=== PATIENT | female | born 1950 | race Caucasian/White ===

== ENCOUNTER 2020-10-15 09:14 | Observation (INO) ==
--- NOTE | 2020-09-20 15:46 | PAT Medication Instructions ---
Medication Instructions Date of Service September 20, 2020 Home Medications acetaminophen [Acetaminophen Extra Strength] 500 - 1,000 mg PO Q6H PRN cholecalciferol (vitamin D3) [Vitamin D3] 150 mcg PO QAM famotidine [Pepcid] 20 mg PO DAILY PRN hydrochlorothiazide 25 mg PO QAM levothyroxine 25 mcg PO QAM DO NOT take the morning of surgery cholecalciferol (vitamin D3) [Vitamin D3] 150 mcg PO QAM hydrochlorothiazide 25 mg PO QAM Take morning of surgery With a small sip of water, OTHERWISE NOTHING TO EAT OR DRINK AFTER MIDNIGHT: acetaminophen [Acetaminophen Extra Strength] 500 - 1,000 mg PO Q6H PRN (okay to take up to 4 hours prior to surgery if needed) famotidine [Pepcid] 20 mg PO DAILY PRN (if needed) levothyroxine 25 mcg PO QAM Take evening before surgery acetaminophen [Acetaminophen Extra Strength] 500 - 1,000 mg PO Q6H PRN (if needed) famotidine [Pepcid] 20 mg PO DAILY PRN (if needed) Other Notes If you have any questions please call us at [phone] or [phone] or [phone] or [phone]
--- NOTE | 2020-09-26 12:58 | Anesthesiology Consultation ---
Date of Service September 26, 2020 Assessment & Plan (1) Encounter for pre-operative examination: COVID Status: As of 09/26 assessment, patient denies travel to endemic area, known exposure/sick contacts, or symptoms of COVID19. Patient instructed that they and their household members must follow strict social distancing guidelines, wear a mask in public and avoid travel/events/gatherings for 14 days prior to surgery. Preoperative COVID19 testing to be completed prior to surgery per surgeon's arrangements (10/10 per pt). Patient made aware to self-isolate as much as possible between COVID testing and surgery. Pt is fully vaccinated for COVID-19. Chart Review Chart Review: Acceptable Risk for Surgery (pending surgeon-ordered PCP clearance) and Patient seen in Pre Admission Testing Teaching & Discussion Instructed NPO after midnight before surgery, except medications with 15 cc of water. Medication instructions provided according to the PAT guidelines. History Surgery Operation Date: 10/15/20 08:40 Proposed Procedures p Left Hip Total Anterior Hip Arthroplasty(Left) - Dario Benton DO Height/Weight Height: 5 ft 6 in Weight: 76.4 kg Allergies Allergy/AdvReac Type Severity Reaction Status Date / Time ciprofloxacin [From Cipro] Allergy Intermediate SWELLING Verified 09/12/20 15:41 IN EYES/RED Medications Home Medications Medication Instructions Recorded Confirmed Last Taken acetaminophen [Acetaminophen Extra 500 - 1,000 mg PO Q6H PRN 09/12/20 09/12/20 Unknown Strength] cholecalciferol (vitamin D3) 150 mcg PO QAM 09/12/20 09/12/20 Unknown [Vitamin D3] famotidine [Pepcid] 20 mg PO DAILY PRN 09/12/20 09/12/20 Unknown hydrochlorothiazide 25 mg PO QAM 09/12/20 09/12/20 Unknown levothyroxine 25 mcg PO QAM 09/12/20 09/12/20 Unknown Past Medical History Medical History (Updated 09/27/20 @ 08:52 by Edgar Bishop) GERD (gastroesophageal reflux disease) Hypertension Hypothyroidism Jaw clicking Has been an issue ever since jaw was hyperextended for intubation during a surgery. Exacerbated 09/19/20 when eating hamburger, could not open jaw. Seen by PCP, tx with prednisone taper, back to baseline. Advise caution when intubating. Osteoarthritis Exercise / Class Metabolic Activity II 4-5 Yardwork/Stairs/Walk up hill Past Family History Family History Brother Family history of diabetes mellitus Other No family history of adverse response to anesthesia Past Surgical History Surgical History H/O unilateral oophorectomy RT AND LEFT (2 SURGERIES) History of section X 2 History of colonoscopy History of hysterectomy History of repair of rotator cuff RT Salivary gland swelling REMOVED FROM LEFT SIDE [place] teeth removed Past Anesthesia History No Hx of Anesthesia Complications and No Family Hx of Anesthesia Complications (other than mother PONV) History of PONV History of PONV (single episode with hysterectomy) and Hx of Motion Sickness Social History Smoking Status: Former smoker tobacco type: cigarettes Do You Dip or Chew Tobacco: No Smoking End Date: 35 YEARS AGO Hx Alcohol Use: No substance use type: does not use Review of Systems Pt denies any recent chest pain, shortness of breath, palpitations, cough, fever, URI, or uncontrolled acid reflux. Physical Exam Vital Signs BP: 136/84 P: 62bpm SPO2: 97% RA T: 98.4 F R: 16 ENMT Mouth: + dental restorations (many crowns) and + macroglossia; no chipped teeth and no loose teeth Thyromental Distance: > or= 3.5 Finger Breadths Mallampati Class: III Neck normal visual inspection; neck extension not limited Respiratory normal respiratory effort, lungs clear to auscultation Cardiovascular RRR, no murmur, no edema Testing Laboratory Results 09/26/20 13:12 09/26/20 13:10 PT 9.4 Seconds (9.0-12.0) 09/26/20 13:12 INR 0.9 (0.9-1.1) 09/26/20 13:12 APTT 24.7 Seconds (21.0-31.0) 09/26/20 13:12 Hemoglobin A1c 5.5 % (4.5-5.6) 09/26/20 13:12 Urine Color Yellow 09/26/20 13:12 Urine Appearance Clear (Clear) 09/26/20 13:12 Urine pH 5.0 (4.5-7.5) 09/26/20 13:12 Ur Specific Calcium 1.008 (1.000-1.030) 09/26/20 13:12 Urine Protein Negative (Negative) 09/26/20 13:12 Urine Glucose (UA) Negative (Negative) 09/26/20 13:12 Urine Ketones Negative (Negative) 09/26/20 13:12 Urine Nitrite Negative (Negative) 09/26/20 13:12 Ur Leukocyte Esterase Trace (Negative) H 09/26/20 13:12 Urine WBC (Auto) 1-5 /hpf (0-5) 09/26/20 13:12 Urine RBC (Auto) 0-4 /hpf (0-4) 09/26/20 13:12 U Hyaline Cast (Auto) 0 /lpf (0-5) 09/26/20 13:12 U Epithel Cells (Auto) >30 /lpf (0-5) H 09/26/20 13:12 Urine Bacteria (Auto) Negative (Negative) 09/26/20 13:12 Blood Type O Positive 09/26/20 13:12 Antibody Screen NEGATIVE 09/26/20 13:12 Electrocardiogram Date: 09/26/20 Findings: + SB @ (54bpm) With short CA. Chest X-Ray Date: 09/26/20 FINDINGS: The cardiac and mediastinal contours are normal. There is no evidence of focal pulmonary consolidation. There is no evidence of failure. No pleural effusions are visualized.[There is probable upper lobe emphysema. IMPRESSION: No active disease in the chest.
--- NOTE | 2020-09-26 13:33 | XRay Report ---
XR chest Pre-admission PA/Lat CLINICAL HISTORY: Preoperative chest COMPARISON STUDY: No previous studies for comparison. FINDINGS: The cardiac and mediastinal contours are normal. There is no evidence of focal pulmonary co nsolidation. There is no evidence of failure. No pleural effusions are visualized.[There is probable upper lobe emphysema. IMPRESSION: No active disease in the chest. ACT 112: Negative or not required by law. Electronically signed by: Slim Fraser M.D. 09/26/2020 1:32 PM
[2020-09-26 14:15] LABS: Basophils # (auto) 0.01 K/uL (0-0.2); Basophils % (auto) 0.1 %; Eosinophils # (auto) 0.03 K/uL (0-0.5); Eosinophils % (auto) 0.3 %; Hematocrit (blood only) 43.9 % (37-47); Hemoglobin 14.7 g/dL (12.0-16.0); Immature Granulocytes # (auto) 0.04 K/uL (0.00-0.02); Immature Granulocytes % (auto) 0.5 %; Lymphocytes # (auto) 1.15 K/uL (1.2-3.4); Lymphocytes % (auto) 13.3 %; Mean Corpuscular Hemoglobin 29.8 pg (25-34); Mean Corpuscular Hgb Conc 33.5 g/dL (32-36); Mean Corpuscular Volume 88.9 fL (80-100); Mean Platelet Volume 10.1 fL (7.4-10.4); Monocytes % (auto) 4.6 %; Neutrophils % (auto) 81.2 %; Platelet Count 299 K/uL (130-400); RDW Coefficient of Variation 14.3 % (11.5-14.5); RDW Standard Deviation 46.8 fL (36.4-46.3); Red Blood Count 4.94 M/uL (4.2-5.4); White Blood Count 8.63 K/uL (4.8-10.8)
[2020-09-26 14:25] LABS: Estimated Average Glucose 111 mg/dl; Hemoglobin A1C 5.5 % (4.5-5.6)
[2020-09-26 14:56] LABS: INR 0.9 (0.9-1.1); Partial Thromboplastin Ratio 0.9; Partial Thromboplastin Time 24.7 Seconds (21.0-31.0); Prothrombin Time 9.4 Seconds (9.0-12.0)
[2020-09-26 15:12] LABS: Appearance Urine Clear (Clear); Bacteria Urine Automated Negative (Negative); Bilirubin Urine Negative (Negative); Blood Urine Negative (Negative); Cast Urine Automated 0 /lpf (0-5); Color Urine Yellow; Epithelial Cell Urine Auto >30 /lpf (0-5); Glucose Urine UA Negative (Negative); Ketones Urine Negative (Negative); Leukocyte Esterase Urine Trace (Negative); Nitrite Urine Negative (Negative); Protein Urine Negative (Negative); RBC Urine Automated 0-4 /hpf (0-4); Specific Gravity Urine 1.008 (1.000-1.030); Urobilinogen Urine Negative (Negative)
[2020-09-26 16:13] LABS: Albumin Level 3.7 gm/dl (3.4-5.0); BUN Creatinine Ratio 20.4 (10-20); Calcium 9.9 mg/dl (8.5-10.1); Creatinine Clr Calc Pharmacy 52.8 ml/min; Est GFR (African American) 61.5; Est GFR (Non-African American) 53.1; Potassium 4.8 mmol/L (3.5-5.1)
--- NOTE | 2020-09-26 16:45 | Electrocardiogram Report ---
Test Reason : Blood Pressure : / mmHG Vent. Rate : 054 BPM Atrial Rate : 054 BPM P-R Int : 108 ms QRS Dur : 090 ms QT Int : 416 ms P-R-T Axes : 069 081 077 degrees QTc Int : 394 ms Sinus bradycardia with short RI Otherwise normal ECG No previous ECGs available Confirmed by Angel Cannon ([id number]) on 09/26/2020 4:44:31 PM Referred By: Dario Benton Confirmed By:Angel Cannon
--- NOTE | 2020-10-14 09:33 | History & Physical Report ---
Date of Service October 15, 2020 Assessment & Plan (1) Degenerative joint disease of left hip: I have indicated the patient for left anterior total hip replacement. The risks, benefits and complications of surgery were explained to the patient which include but not limited to infection, acute blood loss, DVT/PE, injury to nerves, vessels, bone, soft tissue, arthrofibrosis, chronic pain, failure of the prosthesis, hip dislocation, leg length discrepancy, need for additional surgery, cardiac and pulmonary events and . The patient wished to proceed with surgery and informed consent was obtained at this time. We will plan for 81mg ASA BID post-operatively for DVT prophylaxis. Upon discharge the patient will be discharged home with home health services. Appropriate clearances by Gillian CHOW were obtained. The patient is asymptomatic for UTI. History of Present Illness Chief Complaint: Left hip pain/DJD Primary Care Provider: Arlette Granados The patient is a 69 year old female who presents with complaints of severe left hip pain and DJD. The patient has failed outpatient conservative treatments to this point which included NSAIDs, IA corticosteroid injection, home exercise/walking program. The patient's pain and limited function have progressed to the point where they severely hinder their activities of daily living and they no longer tolerate exercise programs. They are requesting to proceed with total hip replacement surgery. Allergies Allergy/AdvReac Type Severity Reaction Status Date / Time ciprofloxacin [From Cipro] Allergy Intermediate SWELLING Verified 10/15/20 09:34 IN EYES/RED erythromycin base AdvReac Intermediate Gastrointestinal Verified 10/15/20 09:35 Upset Home Medications Medication Instructions Recorded Confirmed Type acetaminophen [Acetaminophen Extra 500 - 1,000 mg PO Q6H PRN 09/12/20 10/15/20 History Strength] cholecalciferol (vitamin D3) 150 mcg PO QAM 09/12/20 10/15/20 History [Vitamin D3] famotidine [Pepcid] 20 mg PO DAILY PRN 09/12/20 10/15/20 History hydrochlorothiazide 25 mg PO QAM 09/12/20 10/15/20 History levothyroxine 25 mcg PO QAM 09/12/20 10/15/20 History Past Med/Surg History Medical History GERD (gastroesophageal reflux disease) Hypertension Hypothyroidism Jaw clicking Has been an issue ever since jaw was hyperextended for intubation during a surgery. Exacerbated 09/19/20 when eating hamburger, could not open jaw. Seen by PCP, tx with prednisone taper, back to baseline. Advise caution when intubating. Osteoarthritis Surgical History H/O unilateral oophorectomy RT AND LEFT (2 SURGERIES) History of section X 2 History of colonoscopy History of hysterectomy History of repair of rotator cuff RT Salivary gland swelling REMOVED FROM LEFT SIDE [place] teeth removed Family History Brother Family history of diabetes mellitus Other No family history of adverse response to anesthesia Social History Smoking Status: Former smoker Smoking End Date: 35 YEARS AGO; Second Hand Exposure: No; Do You Dip or Chew Tobacco: No; Tobacco Cessation Education Requested by Patient: No Hx Alcohol Use: No Preferred Language: [place] [employer] [place] Required: No Beliefs That Will Affect Care: None Current Living Situation: Spouse Feels Safe at Home: Yes Safety Concerns: Feels Safe At This Time Assistive Devices: Glasses Assistive Devices Comment: READING GLASSES Review of Systems Review of Systems: All systems reviewed & are unremarkable except as noted in HPI & below Constitutional: as per Subjective / HPI Physical Exam Physical Exam: LLE NVSI +EHL/FHL/TA/GS SILT grossly, +2 DP pulse, compartments soft NT, limited painful ROM of the hip, antalgic gait. Constitutional: WD/WN, vitals as above Eyes: PERRL, conjunctivae normal, anicteric sclerae ENMT: external ear and nose normal, oropharynx normal Neck: trachea midline, no thyromegaly Respiratory: normal respiratory effort, lungs clear to auscultation Cardiovascular: RRR, no murmur, no edema Gastrointestinal (Abdomen): normal bowel sounds, soft, nontender, no hepatosplenomegaly Musculoskeletal: no cyanosis or clubbing, extremities motor strength 5/5 Skin: no rashes, warm and dry Neurologic: patellar DTR's 2+ bilat, sensation intact Psychiatric: A+Ox3, euthymic affect Lymphatic: no cervical or axillary lymphadenopathy Results & Data Results & Data ([facility]) Diagnostic Findings Multiple views of the hip demonstrates severe DJD with complete loss of the joint space. +osteophytes, +sclerosis, +subchondral cysts. Pre Admission Testing Addendum Laboratory Results 09/26/20 13:12 09/26/20 13:10 PT 9.4 Seconds (9.0-12.0) 09/26/20 13:12 INR 0.9 (0.9-1.1) 09/26/20 13:12 APTT 24.7 Seconds (21.0-31.0) 09/26/20 13:12 Hemoglobin A1c 5.5 % (4.5-5.6) 09/26/20 13:12 Urine Color Yellow 09/26/20 13:12 Urine Appearance Clear (Clear) 09/26/20 13:12 Urine pH 5.0 (4.5-7.5) 09/26/20 13:12 Ur Specific [place] 1.008 (1.000-1.030) 09/26/20 13:12 Urine Protein Negative (Negative) 09/26/20 13:12 Urine Glucose (UA) Negative (Negative) 09/26/20 13:12 Urine Ketones Negative (Negative) 09/26/20 13:12 Urine Nitrite Negative (Negative) 09/26/20 13:12 Ur Leukocyte Esterase Trace (Negative) H 09/26/20 13:12 Urine WBC (Auto) 1-5 /hpf (0-5) 09/26/20 13:12 Urine RBC (Auto) 0-4 /hpf (0-4) 09/26/20 13:12 U Hyaline Cast (Auto) 0 /lpf (0-5) 09/26/20 13:12 U Epithel Cells (Auto) >30 /lpf (0-5) H 09/26/20 13:12 Urine Bacteria (Auto) Negative (Negative) 09/26/20 13:12 Blood Type O Positive 09/26/20 13:12 Antibody Screen NEGATIVE 09/26/20 13:12 09/26/20 08:32 Urine Culture - Final Urine,Clean Catch More than three types of organisms present, all low counts mixed probable skin lenora. No further identifications or sensitivities to follow.
[~2020-10-15 09:14] MED LIST: ACETAMINOPHEN 500 MG TAB PO SCH; BUPIVACAINE 0.5 % 5 MG/1 ML PF 10ML VIAL ONE; CeleBREX 200 MG CAP PO SCH; FAMOTIDINE 20 MG TAB PO SCH; LR 500ML BOLUS, THEN 15ML/HR IV SCH; METOCLOPRAMIDE HCL 10 MG TABLET PO SCH; ROPIVACAINE 0.5% HCL/PF 150 MG, BUPIVACAINE 0.75% MPF 20 ML, EPINEPHrine 30MG/30ML (OR ... INFIL SCH; TRANEXAMIC ACID 1,000 MG **IV Intra-op IV SCH; TRANEXAMIC ACID 1,000 MG **IV Pre-op IV SCH; ceFAZolin 1000MG 1,000 MG/7.5 ML SYR IV SCH; dexAMETHasone 4 MG TAB PO SCH; fentaNYL citrate 100 MCG/2 ML VIAL ONE
[2020-10-15] MEDS ORDERED: MIDAZOLAM HCL 1 MG/ML 2ML VIAL ONE ×2 (10:13→13:04)
[2020-10-15] MEDS ORDERED: PROPOFOL IV EMULSION 10 MG/ML 20 ML VIAL IV ONE ×3 (11:27→13:42)
[2020-10-15] MEDS ORDERED: ORTHO JOINT ANESTHETIC ONE (12:03)
--- NOTE | 2020-10-15 12:27 | History & Physical Bridge Note ---
Date of Service October 15, 2020 History & Physical Bridge Note I have examined the patient, reviewed the History & Physical and in the interval since the performance of the History & Physical I have noted the following changes of clinical significance: no changes noted
[2020-10-15] MEDS ORDERED: ATROPINE SULFATE 0.1 MG/ML 10ML SYR IV PRN (13:35)
[2020-10-15] MEDS ORDERED: ePHEDrine sulfate 50 MG/ML AMP IV PRN (13:35)
[2020-10-15] MEDS ORDERED: PHENYLEPHRINE HCL 10 MG/ML VIAL ONE (13:59)
--- NOTE | 2020-10-15 14:16 | Post Operative Brief Note ---
Immediate Post Op Note v1 Date of Surgery October 15, 2020 Pre & Post Diagnosis Operation Date: 10/15/20 11:50 Pre-Op Diagnosis: Unilateral Primary Osteoarthritis, Left Hip Post-Op Diagnosis: Unilateral Primary Osteoarthritis, Left Hip I identified the patient and participated in the time-out.: Yes Procedure Operation Date: 10/15/20 11:50 Actual Procedures p Left Hip Total Anterior Hip Arthroplasty(Left) - Dario Benton DO Surgeon Dario Benton DO Forklift Wheel Loader Moris Fields Estimated Blood Loss 175 Findings Consistent with Post-Op Diagnosis Fluids See anesthesia report Specimens Femoral head Anesthesia Type Spinal MAC Complications none Disposition Disposition: Recovery Room Overlapping Procedure I was present for: the critical portions of procedure. I was immediately available: during the entire case. Back up surgeon: was not required during procedure.
--- NOTE | 2020-10-15 14:18 | Operative Report ---
Post Operative Report Pre & Post Diagnosis Operation Date: 10/15/20 11:50 Pre-Op Diagnosis: Unilateral Primary Osteoarthritis, Left Hip Post-Op Diagnosis: Unilateral Primary Osteoarthritis, Left Hip I identified the patient and participated in the time-out.: Yes Procedure Operation Date: 10/15/20 11:50 Actual Procedures p Left Hip Total Anterior Hip Arthroplasty(Left) - Dario Benton DO Surgeon Dario Benton DO Logistics Operations Manager Moris Fields Estimated Blood Loss 175 Findings Consistent with Post-Op Diagnosis Fluids See anesthesia report Specimens Femoral head Anesthesia Type Spinal MAC Complications none Disposition Disposition: Recovery Room Indications The patient is a 62-year-old female who presents with severe progressive low hip DJD who has failed outpatient conservative treatments. I indicated the patient for a total hip replacement and the risks and benefits were explained in detail which included but not limited to infection, bleeding, blood clot, damage to surrounding bone, nerves, vessels, soft tissue, hip dislocation, failure of the prosthesis, leg length discrepancy, need for additional surgery and . The patient agreed to proceed with replacement of the hip and informed consent was obtained. Appropriate clearances were obtained. Description of Procedure COMPONENTS USED: [employer] hip system: Acetabulum size 52, femur size 7 high offset, femoral head 36-3, liner 52x30, acetabular screw 25 mm x 1. DESCRIPTION OF PROCEDURE: Following satisfactory spinal anesthesia, the patient was placed supine on the OR table. The right leg was placed in the well leg grewal and the left leg in the traction device. The left leg was prepared with ChloraPrep and draped sterilely. A surgical timeout was performed, patient identified and site lux verified. Appropriate antibiotics were given. A standard anterior approach in the interval between the sartorius and tensor muscles was performed. Dissection was carried down through subcutaneous tissues. Electrocautery was utilized for hemostasis. Circumflex femoral vessels were identified, tied and ligated. The anterior capsular fat pad was removed and the capsulotomy was performed revealing the arthritic femoral neck and head. A femoral neck cut was made with reciprocating saw and the bone fragments removed. The acetabular self-retraining retractor was placed. Acetabular reaming was completed under fluoroscopic guidance, a 52 shell was impacted into an anatomic position and secured with a acetabular screw. Local anesthetic was placed and following irrigation, the polyethylene liner was placed. The femur was placed into position of external rotation, extension and adduction. Femoral canal was prepared up to the size 7 high offset. Trial reduction with a 36-3 neck length head showed good soft tissue tension, leg lengths restored, and good fit and fill of the proximal canal using fluoroscopic landmarks. The hip was dislocated. The trial component was removed. The final implant was placed. The hip was irrigated with sterile saline solution and reduced. A Betadine soak was performed. After 3 minutes, the hip was once more irrigated with copious sterile saline solution with bacitracin. Nancy-incisional soft tissue was injected utilizing [place] Orthomix which includes a combination of Ropivicaine 0.5% 150mg, Bupivicaine 0.5%/Epinephrine 1:200,000 30ml, Toradol 30mg, Dexamethasone 4mg, Ketamine 10mg, Clonidine 100mcg and NSS 30ml solution. The capsule was then closed with 1-0 Vicryl interrupted figure of eight sutures. The fascia was closed with a running suture of #1 Vicryl, the subcutaneous tissues with 2-0 Vicryl and the skin was closed with fernando and a sterile dry dressing was applied which included haseeb incisional VAC. The patient tolerated the procedure well and was transported to PACU in stable condition. Due to the complex nature of the procedure, the entire surgery was performed with the operational assistance of Moris Fields PA-C. The medical practice assistant, under direct supervision, was involved in the actual performance of all aspects of the surgical procedure including patient positioning, hemostasis, tissue retraction, instrument management and wound closure. I attest to the content of the Intraoperative Record and any orders documented therein. Any exceptions are noted below.
--- NOTE | 2020-10-15 15:03 | XRay Report ---
XR hip 1V LT w pelvis CLINICAL HISTORY: IN PACU - A/P PELVIS and LATERAL HIP COMPARISON: None. DISCUSSION: Prosthetic left hip joint is seen. Subcutaneous emphysema and skin fernando are demonstrated. IMPRESSION: Postoperative changes as detailed above. ACT 112: Negative or not required by law. The above report was generated using voice recognition software. It may contain grammatical, syntax o r spelling errors. Electronically signed by: Dalila Marroquin DO 10/15/2020 3:02 PM
--- NOTE | 2020-10-15 15:06 | Fluoroscopy Report ---
INTRAOPERATIVE RADIOGRAPHS CLINICAL HISTORY: Left hip arthroplasty. Fluoroscopy time: 50 seconds. FINDINGS: 2 spot fluoroscopic views of the left hip from an arthroplasty procedure are presented. A b ipolar left hip arthroplasty is in near-anatomic alignment. A single cortical lag screw transfixes th e acetabular cup. There is no evidence of fracture on these fluoroscopic images. Advanced arthritic c hange is noted in the right hip. IMPRESSION: Intraoperative images from a left hip arthroplasty procedure as above. Electronically signed by: Hao Adamson M.D. 10/15/2020 3:04 PM
--- NOTE | 2020-10-15 15:10 | Anesthesiology Progress Note ---
Date of Service October 15, 2020 Anesthesia Post Procedure Vital Signs Vital Signs: Temp Pulse Pulse Resp BP Pulse Ox 10/15/20 15:05 36.4 C L 64 14 117/68 97 10/15/20 14:55 64 14 102/70 97 10/15/20 14:45 67 14 110/62 100 10/15/20 14:38 36.5 C 77 12 99/72 L 99 10/15/20 09:42 36.7 C 74 74 16 131/76 100 Transfer of Care Handoff Completed per policy Notes Mental Status: alert / awake / arousable Patient Amnestic to Procedure: Yes Nausea / Vomiting: adequately controlled Pain: adequately controlled Airway Patency, RR, SpO2: stable & adequate BP & HR: stable & adequate Hydration State: stable & adequate Neuraxial Anesthesia: was administered and sensory block is resolving Anesthetic Complications: no major complications apparent
[2020-10-15] MEDS ORDERED: FAMOTIDINE 20 MG TAB PO PRN (15:32)
[2020-10-15] MEDS ORDERED: MAGNESIUM HYDROXIDE SUSP 30 ML UDC PO PRN (15:32)
[2020-10-15] MEDS ORDERED: ONDANSETRON INJ 2 MG/ML 2 ML VIAL IV PRN (15:32)
[2020-10-15] MEDS ORDERED: diphenhydrAMINE Capsule 25 MG CAP PO PRN (15:32)
[2020-10-15] MEDS ORDERED: oxyCODONE HCL IR 5 MG TAB (IMMEDIATE RELEASE) PO PRN (15:32)
[2020-10-15] MEDS ORDERED: METOCLOPRAMIDE HCL INJ 5 MG/ML 2 ML VIAL IV PRN (15:32)
[2020-10-15] MEDS ORDERED: bisacodyL 10 MG SUPP PR PRN (15:32)
[2020-10-15] MEDS ORDERED: HYDROmorphone INJ 0.5 MG/0.5 ML SYR IV PRN (15:32)
[2020-10-15] MEDS ORDERED: NALOXONE HCL 0.4 MG/1 ML VIAL/CARP IV PRN (15:32)
[2020-10-15] MEDS: KETOROLAC TROMETHAMINE 15 MG/ML VIAL IV SCH ×2 (16:14→21:49)
[2020-10-15] MEDS: SODIUM CHLORIDE 0.9% 1000ML 1,000 ML IV SCH (16:15)
--- NOTE | 2020-10-15 18:10 | Orthopedic Progress Note ---
Date of Service October 15, 2020 Assessment & Plan (1) Degenerative joint disease of left hip: Status post left anterior total hip arthroplasty -Ancef x24 -DVT prophylaxis: SCDs, teds, 81 mg ASA twice daily -Weight-bear as tolerates left lower extremity -PT/OT -Postoperative x-ray demonstrates well aligned well fixed prosthesis without fracture or dislocation -A.m. labs -DC planning Admission and Anticipated Discharge Date Admission Date: October 15, 2020 Subjective Post Operative Progress Note Patient seen sitting up in bed, comfortable, denies complaints, pain well controlled, no acute issues. Review of Systems Review of Systems: All systems reviewed & are unremarkable except as noted in HPI & below Constitutional: as per Subjective / HPI Physical Exam Physical Exam: LLE NVSI +EHL/FHL/TA/GS SILT grossly, +2 DP pulse, compartments soft NT, dressing cdi. Constitutional: WD/WN, vitals as above Results & Data ([facility]) Vital Signs (Past 12 Hours) Vital Signs Temp Pulse Pulse Pulse Resp BP Pulse Ox 10/15/20 17:20 79 16 117/77 98 10/15/20 16:15 36.4 C L 55 L 16 131/75 99 10/15/20 15:45 52 L 16 119/77 99 10/15/20 15:15 36.5 C 65 114/74 99 10/15/20 15:05 36.4 C L 64 14 117/68 97 10/15/20 14:55 64 14 102/70 97 10/15/20 14:45 67 14 110/62 100 10/15/20 14:38 36.5 C 77 12 99/72 L 99 10/15/20 09:42 36.7 C 74 74 16 131/76 100
[2020-10-15] MEDS ORDERED: SENNA 8.6 MG TAB PO SCH (21:00)
[2020-10-15] MEDS: ceFAZolin 2000MG 2,000 MG/15 ML SYR IV SCH (21:41)
[2020-10-15] MEDS: DOCUSATE SODIUM 100 MG CAP PO SCH (21:44)
[2020-10-15] MEDS: ACETAMINOPHEN 500 MG TAB PO SCH (21:44)
[2020-10-16] MEDS: SODIUM CHLORIDE 0.9% 1000ML 1,000 ML IV SCH (02:26)
[2020-10-16] MEDS: KETOROLAC TROMETHAMINE 15 MG/ML VIAL IV SCH ×2 (05:01→10:59)
[2020-10-16] MEDS: ceFAZolin 2000MG 2,000 MG/15 ML SYR IV SCH (05:01)
[2020-10-16] MEDS: ACETAMINOPHEN 500 MG TAB PO SCH ×2 (06:01→13:16)
[2020-10-16] MEDS ORDERED: LEVOTHYROXINE SODIUM 25 MCG TABLET PO SCH (06:30)
[2020-10-16 06:54] LABS: Hematocrit (blood only) 33.9 % (37-47); Hemoglobin 11.3 g/dL (12.0-16.0); Immature Granulocytes # (auto) 0.02 K/uL (0.00-0.02); Immature Granulocytes % (auto) 0.2 %; Lymphocytes # (auto) 0.64 K/uL (1.2-3.4); Lymphocytes % (auto) 5.5 %; Mean Corpuscular Hemoglobin 29.6 pg (25-34); Mean Corpuscular Hgb Conc 33.3 g/dL (32-36); Mean Corpuscular Volume 88.7 fL (80-100); Mean Platelet Volume 9.8 fL (7.4-10.4); Monocytes # (auto) 0.65 K/uL (0.11-0.59); Monocytes % (auto) 5.6 %; Neutrophils # (auto) 10.39 K/uL (1.4-6.5); Neutrophils % (auto) 88.7 %; Platelet Count 249 K/uL (130-400); RDW Coefficient of Variation 13.8 % (11.5-14.5); RDW Standard Deviation 44.8 fL (36.4-46.3); Red Blood Count 3.82 M/uL (4.2-5.4)
[2020-10-16 07:29] LABS: BUN Creatinine Ratio 19.5 (10-20); Calcium 8.7 mg/dl (8.5-10.1); Creatinine Clr Calc Pharmacy 52.3 ml/min; Est GFR (African American) 60.8 ml/min; Est GFR (Non-African American) 52.5 ml/min
[2020-10-16] MEDS: DOCUSATE SODIUM 100 MG CAP PO SCH (08:41)
[2020-10-16] MEDS ORDERED: hydroCHLOROthiazide 25 MG TAB PO SCH (09:00)
[2020-10-16] MEDS ORDERED: ASPIRIN 81 MG ECTAB PO SCH (09:00)
[2020-10-16] MEDS ORDERED: MULTIVITAMIN TAB PO SCH (09:00)
--- NOTE | 2020-10-16 10:20 | Orthopedic Progress Note ---
Date of Service October 16, 2020 Assessment & Plan (1) Degenerative joint disease of left hip: Status post left anterior total hip arthroplasty POD#1 -Ancef x24 -DVT prophylaxis: SCDs, teds, 81 mg ASA twice daily -Weight-bear as tolerates left lower extremity -PT/OT -Postoperative x-ray demonstrates well aligned well fixed prosthesis without fracture or dislocation -A.m. labs - as above, hgb 11.3 -DC planning - Home with Admission and Anticipated Discharge Date Admission Date: October 15, 2020 Subjective Post Operative Progress Note Patient seen ambulating in room, comfortable, denies complaints, pain well controlled, no acute issues. Denies F/C/N/V/SOB/CP. Review of Systems Review of Systems: All systems reviewed & are unremarkable except as noted in HPI & below Constitutional: as per Subjective / HPI Physical Exam Physical Exam: LLE NVSI +EHL/FHL/TA/GS SILT grossly, +2 DP pulse, compartments soft NT, dressing cdi. Constitutional: WD/WN, vitals as above Results & Data ([facility]) Vital Signs (Past 12 Hours) Vital Signs Temp Pulse Resp BP Pulse Ox 10/16/20 07:12 36.7 C 56 L 16 94/55 L 98 10/16/20 03:31 36.5 C 55 L 16 95/60 L 98 10/15/20 22:37 36.5 C 67 16 109/68 96 Laboratory Results 10/16/20 10/16/20 10/16/20 Range/Units 07:35 06:18 06:18 WBC 11.70 H (4.8-10.8) K/uL RBC 3.82 L (4.2-5.4) M/uL Hgb 11.3 L (12.0-16.0) g/dL Hct 33.9 L (37-47) % MCV 88.7 (80-100) fL MCH 29.6 (25-34) pg MCHC 33.3 (32-36) g/dL RDW Std Deviation 44.8 (36.4-46.3) fL RDW Coeff of [place] 13.8 (11.5-14.5) % Plt Count 249 (130-400) K/uL MPV 9.8 (7.4-10.4) fL Immature Gran % (Auto) 0.2 % Neut % (Auto) 88.7 % Lymph % (Auto) 5.5 % [place] % (Auto) 5.6 % Eos % (Auto) 0.0 % Baso % (Auto) 0.0 % Neut # (Auto) 10.39 H (1.4-6.5) K/uL Lymph # (Auto) 0.64 L (1.2-3.4) K/uL [place] # (Auto) 0.65 H (0.11-0.59) K/uL Eos # (Auto) 0.00 (0-0.5) K/uL Baso # (Auto) 0.00 (0-0.2) K/uL Immature Gran # (Auto) 0.02 (0.00-0.02) K/uL Sodium 140 (136-145) mmol/L Potassium 3.9 (3.5-5.1) mmol/L Chloride 108 H (98-107) mmol/L Carbon Dioxide 25 (21-32) mmol/L Anion Gap 7.0 (3-11) BUN 21 H (7-18) mg/dl Creatinine 1.09 (0.6-1.2) mg/dl Est Cr Clr Drug Dosing 52.3 ml/min Est GFR ( Amer) 60.8 ml/min Est GFR (Non-Af Amer) 52.5 ml/min BUN/Creatinine Ratio 19.5 (10-20) Glucose 121 H (70-99) mg/dl Calcium 8.7 (8.5-10.1) mg/dl
--- NOTE | 2020-10-16 18:49 | Discharge Summary ---
Date of Service October 16, 2020 Admission HPI Per Admitting Provider The patient is a 69 year old female who presents with complaints of severe left hip pain and DJD. The patient has failed outpatient conservative treatments to this point which included NSAIDs, IA corticosteroid injection, home exercise/walking program. The patient's pain and limited function have progressed to the point where they severely hinder their activities of daily living and they no longer tolerate exercise programs. They are requesting to proceed with total hip replacement surgery. Principal Diagnosis Left anterior total hip replacement Discharge Exam LLE NVSI +EHL/FHL/TA/GS SILT grossly, +2 DP pulse, compartments soft NT, dressing cdi. Constitutional WD/WN, vitals as above Discharge Data Allergies Allergy/AdvReac Type Severity Reaction Status Date / Time ciprofloxacin [From Cipro] Allergy Intermediate SWELLING Verified 10/15/20 09:34 IN EYES/RED erythromycin base AdvReac Intermediate Gastrointestinal Verified 10/15/20 09:35 Upset Procedures Performed Operation Date: 10/15/20 11:50 Actual Procedures p Left Hip Total Anterior Hip Arthroplasty(Left) - Dario Benton DO Ordered Studies 10/15/20 11:50 FL hip LT 1V Routine Hospital Course (1) Degenerative joint disease of left hip: Hospital Course: On 10/15/20 the patient was taken to the operating room, adequate anesthesia administered and underwent a left anterior total hip arthroplasty. The patient tolerated the procedure well and was taken to the PACU in stable condition. Post-operatively the patient was started on a DVT ppx medication and given appropriate IV antibiotics. Consults were placed to physical therapy, occupational therapy and case management. On POD#1, the patient did well overnight and their pain was well controlled. Labs were drawn and the Hgb was 11.3. The patient progressed well with PT. Dressings were changed at this time and the incision was clean, dry and intact. The patients hospital stay was relatively uneventful and they were deemed stable by the orthopedic team and consultants to be discharged home with on 10/16/20. Discharge Instructions: Upon discharge the patient may weight bear as tolerates through their operative extremity. They were instructed to keep the incision clean and dry at all times. The patient may shower but should not submerge the incision, avoid bathing, pools and hot tubs. The patient was given a script for pain medication and should take as instructed. The patient was given a script for DVT ppx 81mg ASA BID and should take as directed. The patient was instructed to not drive or travel for long distances until cleared to do so. If the patient develops any symptoms of fevers, chills, nausea, vomiting, increased redness, swelling, pain or drainage from the surgical site, they should notify the office and/or proceed to the nearest emergency room. The patient should follow up in 10-14 days after surgery for their routine post-operative follow-up appointment and should call the office, to confirm the date and time. Status post left anterior total hip arthroplasty POD#1 -Ancef x24 -DVT prophylaxis: SCDs, teds, 81 mg ASA twice daily -Weight-bear as tolerates left lower extremity -PT/OT -Postoperative x-ray demonstrates well aligned well fixed prosthesis without fracture or dislocation -A.m. labs - as above, hgb 11.3 -DC planning - Home with Total Time Total Time Spent Total Time Spent (In Minutes): 30 Discharge Plan Discharge Items Patient Disposition: Home - Home Health Services Reason For Visit: Unilateral Primary Osteoarthritis, Left Hip Discharge Diagnosis: Left anterior total hip replacement Condition on Discharge: Good Activity: Per Instructions section Lifting: Wait until after follow-up appointment Bathing: Keep incision dry Bathing Comment: No bathing, pools or hot tubs. Sexual Activity: Wait until after follow-up appointment Exercise/Sports: Wait until after follow-up appointment Driving/Machine Use: No driving. Weightbearing: Full weightbearing Non-emergency contact: Primary Care Provider and Surgeon Call non-emergency contact if: you have any medication questions, your symptoms worsen, your pain is not controlled, your pain is worsening, your pain is unusual for you, your pain is concerning for you, you have a fever, your temperature is above 101, your wound has increased redness, your wound has increased drainage and your wound pain has increased Follow-up/Referrals: Arlette Granados D.O. [Primary Care Provider] - Diet: Regular Addtl Attending Provider Instructions: ACTIVITY RECOMMENDATIONS: SELF CARE INSTRUCTIONS AFTER TOTAL HIP REPLACEMENT : Direct Anterior Approach Until the incision and soft tissues around your hip have healed, there is a possibility that the hip prosthesis could dislocate. A. Hip flexion ( Up & Down out of chair or steps ) may be difficult. This is normal. B. Numbness in front of the thigh is also normal for a few weeks. C. Use hand rails when walking on stairs. D. Wear low heeled shoes with non-slip soles. E. Be sure that your floors are free of things that could trip you - throw rugs, electrical cords, small objects. Avoid wet and waxed floors, especially with crutches and canes. F. Try to walk several times a day with rest periods between. G. Continue with all the exercises taught to you in the hospital. Again, make walking a part of your daily routine. SPECIAL CARE INSTRUCTIONS: VERY IMPORTANT TO READ AND REVIEW A. You may still be at risk for phlebitis and blood clots. 1. Wear surgical stockings (DIOMEDES hose) for 2 weeks after surgery to improve circulation and reduce swelling. 2. Take Aspirin 81mg twice daily for 4 weeks or as directed by your doctor. This is your blood thinner. 3. High risk patients may be prescribed a stronger blood thinner if necessary. 4. If you are on Coumadin normally, your family doctor/surgical garment assembler should monitor your blood work. Expect a phone call the day of or the day after bloodwork is drawn to adjust your dosage. B. You must take antibiotics before having dental work, bladder, bowel and other surgery. Your doctor will provide you with a permanent card to carry describing precautions. C. Call [facility] if you have a fever, redness or swelling around the incision, cloudy drainage from incision, or sudden increase in pain in your hip, not relieved by your regular pain medication. D. Please call the office at if you have any concerns or questions about your operation or recovery. * YOU MAY SHOWER, NO TUB BATHS UNTIL CLEARED BY YOUR DOCTOR. - Keep an extra close eye on the top portion of your incision. Be sure to keep clean & dry. * WEAR DIOMEDES HOSE 20 HOURS PER DAY FOR 2 WEEKS. * YOU MAY PROGRESS FROM A WALKER, TO A CANE, TO INDEPENDENT AT YOUR OWN PACE. * MOST PATIENTS WILL HAVE HOME NURSING FOR THERAPY. IF YOU DECIDE TO DO OUTPATIENT PHYSICAL THERAPY, PLEASE SCHEDULE THIS 3 TIMES PER WEEK. *PATO incisional vac is a special dressing covering your incision. This dressing provides a sterile dry environment while you are healing. The dressing is to be left in place for 7 days post-operatively. Your home nurse or surgeon will remove. If you develop any redness or blisters or have any questions notify your surgeon immediately. FOLLOW UP VISIT: If appointment is not already scheduled: Please call [facility] to make a follow-up appointment for 2 weeks after your surgery at . Pending Studies at Discharge: No Stand-Alone Forms: My [place] [facility], Opioid Pain Management, Smoking Cessation Medications and DC Order Prescriptions: New celecoxib [Celebrex] 200 mg Capsule 200 mg PO BID PRN (Reason: pain/inflammation) Qty: 30 RF: 0 aspirin 81 mg Tablet,Delayed Release (Dr/Ec) 81 mg PO BID Qty: 56 RF: 0 acetaminophen 500 mg Tablet 1,000 mg PO Q8 PRN (Reason: pain/fevers) Qty: 90 RF: 0 oxycodone 5 mg Tablet 5 mg PO Q6H MDD 4 PRN (Reason: pain) Qty: 30 RF: 0 sennosides [Senokot] 8.6 mg Tablet 17.2 mg PO HS PRN (Reason: constipation) Qty: 30 RF: 0 Continued levothyroxine 25 mcg Tablet 25 mcg PO QAM RF: 0 hydrochlorothiazide 25 mg Tablet 25 mg PO QAM RF: 0 cholecalciferol (vitamin D3) [Vitamin D3] 50 mcg (2,000 unit) Tablet 150 mcg PO QAM RF: 0 famotidine [Pepcid] 20 mg Tablet 20 mg PO DAILY PRN (Reason: REFLUX) RF: 0 Discontinued acetaminophen [Acetaminophen Extra Strength] 500 mg Tablet 500 - 1,000 mg PO Q6H PRN (Reason: Pain) RF: 0 Discharge Orders: Discharge Order (Routine); Ordered 10/16/20 Ordered By: Dario Mcmillan/Other Patient Handouts: DVT Post Op Prevention Admission Data Admit Date/Time: 10/15/20 14:39 Attending Provider: Dario Benton Admit Provider: Draio Benton Primary Care Provider: Arlette Granados Other Interventions: Discharge Summary Assessment (RN) Last Done: 10/16/20 11:19
[2020-10-16] MEDS ORDERED: CeleBREX 200 MG CAP PO SCH (21:00)
== END 2020-10-16 14:56 | disposition home health service (06) ==
LOC: 3E 09:14 → ASU 09:14